=== PATIENT | female | born 1970 | race Caucasian/White ===

== ENCOUNTER 2018-08-25 13:45 | Inpatient (IN) | payer BC, OTHER ==
--- NOTE | 2018-08-25 14:31 | HP ---
SUPERVISING PHYSICIAN: Mohit Rahman MD CHIEF COMPLAINT: Dysuria. HISTORY OF PRESENT ILLNESS: This is a 48-year-old female who went to the clinic today with dysuria. The patient is immunocompromised due to the fact that she has rheumatoid arthritis and is on Remicade. She noted that she has had dysuria with right sided back pain for several days. When she was seen over there, she was in quite a bit of pain and did not look well. Due to her immunocompromised state, she was referred for admission over here for treatment of pyelonephritis. At the time of examination, the patient is in distress secondary to pain. She has significant right CVA tenderness. She is currently not running a fever. PAST MEDICAL HISTORY: 1. Supraventricular tachycardia. 2. Rheumatoid arthritis. 3. Depression. 4. Cervical spondylosis. 5. Migraine headaches. PAST SURGICAL HISTORY: 1. Appendectomy. 2. x5. 3. Hysterectomy. 4. Gastric bypass surgery. 5. Cardiac ablation. CURRENT MEDICATIONS: 1. Vasculera 630 mg by mouth daily. 2. Diclofenac 35 mg b.i.d. 3. Pristiq 100 mg daily. 4. Iron infusion once a week. 5. Zak 5 mg b.i.d. 6. Rheumate 1 mg/1 mg/500 mg 1 capsule b.i.d. 7. Wellbutrin 300 mg extended release b.i.d. 8. Remicade 100 [address] prescribed [address] Carmona in [place]. ALLERGIES: NITROFURANTOIN AND MYCINS. FAMILY HISTORY: Mother has palpitations. 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 She is . No alcohol, no illicit drugs, no smoking. REVIEW OF SYSTEMS: CONSTITUTIONAL: Possible fever, but this subjective. No actual values. Positive for malaise. HEENT: Symptoms are negative. RESPIRATORY: No cough, hemoptysis or pleuritic chest pain. CARDIOVASCULAR: No chest pain, palpitations or peripheral edema. GASTROINTESTINAL: Positive for nausea. No vomiting. No significant abdominal pain. She does have right flank pain. GENITOURINARY: Positive for dysuria, frequency and right flank pain. HEMATOLOGIC: No easy bruising and no transfusion reaction. MUSCULOSKELETAL: Positive for pain consistent with rheumatoid arthritis. No actual joint swelling or muscle cramps at this time. ENDOCRINE: No polydipsia, polyuria or polyphagia. No heat or cold intolerance. NEUROLOGIC: No syncope, paresthesias or seizures. PHYSICAL EXAMINATION: VITAL SIGNS: GENERAL: Ms. Javier is a 48-year-old female in active distress currently secondary to discomfort. HEENT: Normocephalic, atraumatic. Pupils are equal and reactive. No nasal drainage. Throat with moist mucosa. NECK: Supple. Midline trachea. No jugular venous distention. CHEST: Symmetrical with equal rise and fall of the chest with inspiration and expiration. Lung sounds are clear to auscultation bilaterally. CARDIOVASCULAR: Regular rate and rhythm. Normal S1, S2. ABDOMEN: Soft. Positive bowel sounds. GENITOURINARY: Deferred, but she does have significant right CVA tenderness to palpation. EXTREMITIES: Lower extremities with 2+ pulse. Capillary refill is less than 2 seconds. NEUROLOGIC: The patient is alert and oriented. LABORATORY: Labs done at the clinic show sodium 143, potassium 4.4, chloride 110, CO2 26, glucose 98, BUN 22, creatinine 0.7, calcium 8.7, albumin 4.2. White cell count 4.5, hemoglobin 13.8, hematocrit 40.8, platelet count 235. There is no left shift. Urinalysis done shows hazy, yellow urine with specific greater than 1.030, trace blood, pH 6.5, negative nitrites, but trace leukocytes, 10 to 20 WBCs and 4+ bacteria on microscopic. ASSESSMENT: 1. Right sided pyelonephritis. 2. Immunocompromised state secondary to immunosuppressive medications for her rheumatoid arthritis. 3. Rheumatoid arthritis. PLAN: We will admit the patient and give of a bolus of Lactated Ringers followed by continuous IV fluids. We will place on [place] due to the fact that we do not know what bacteria we are dealing with and she is in an immunocompromised state. We will deescalate if possible once we have the sensitivities back. DVT and GI ulcer prophylaxis have been ordered. Pain medications have been ordered as well. [facility][id number] [facility]
[2018-08-25] MEDS ORDERED: LACTATED RINGERS 1,000 ML IVS ONE (14:35)
[2018-08-25] MEDS ORDERED: TEMAZEPAM 15 MG CAP PO PRN (14:36)
[2018-08-25] MEDS ORDERED: fentaNYL CITRATE INJ 50 MCG/ML AMP IV ONE (14:36)
[2018-08-25] MEDS ORDERED: ONDANSETRON INJ 4 MG/2 ML VIAL IV PRN (14:36)
[2018-08-25] MEDS ORDERED: SODIUM CHLORIDE 0.9% (FLUSH) 10 ML SYG IV PRN (14:36)
[2018-08-25] MEDS ORDERED: IV SET AND CAP CHANGE INJ INJ SCH (15:00)
--- NOTE | 2018-08-25 15:26 | CT ---
EXAM DESCRIPTION: Abdoment/Pelvis w/o Contrast CLINICAL HISTORY: 48 years Female, pyelonephritis, rule out hydronephrosis/stone COMPARISON: None available. TECHNIQUE: Contiguous 3 mm axial images were obtained from the lung bases to the level of the proximal femora without the administration of intravenous or oral contrast. Sagittal and coronal reconstructions were reviewed. FINDINGS: Limited evaluation of the solid organs due to the lack of intravenous contrast. THORAX: The imaged lower thorax demonstrates no gross abnormality. LIVER: The liver demonstrates normal size and density with no intrahepatic biliary ductal dilatation. GALLBLADDER: Surgically absent. PANCREAS: Appears normal with no cystic or solid lesions. SPLEEN: Normal ADRENAL GLANDS: Normal with no nodules or masses. KIDNEYS: Both kidneys are symmetric in size and contour with no hydronephrosis or nephrolithiasis or perinephric fluid collections. The visualized ureters appear grossly unremarkable. STOMACH: Changes of gastric bypass surgery are identified. SMALL BOWEL: The small bowel loops demonstrate variable degrees of distention with no abnormal dilatation or other signs to suggest bowel obstruction. LARGE BOWEL: Moderate degree of fecal material is noted throughout the colon, consistent with constipation. No evidence of free intraperitoneal air or fluid. RETROPERITONEUM: The abdominal aorta is nonaneurysmal with no significant atherosclerosis. The inferior vena cava is normal in size and caliber. No abnormally enlarged retroperitoneal lymph nodes are identified. URINARY BLADDER:The urinary bladder is well-distended with no gross abnormality. The uterus is surgically absent. Bilateral ovaries appear normal. Small amount of free fluid is noted in the pelvis. ADDITIONAL FINDINGS: None. BONES: Mild degenerative changes are identified in the visualized bones.No evidence of osteophytic or osteoblastic lesions. IMPRESSION: No evidence of bilateral renal/ureteric/bladder calculi. Constipation. This exam was performed according to our departmental dose-optimization program, which includes automated exposure control, adjustment of the mA and/or kV according to patient size and/or use of iterative reconstruction technique. Electronically signed by: Ann Jansen MD 08/25/2018 3:24 PM [employer]
[2018-08-25] MEDS ORDERED: MAGNESIUM HYDROXIDE 30 ML UD PO PRN (15:59)
[2018-08-25] MEDS ORDERED: BISACODYL SUPPOSITORY 10 MG PR ONE (15:59)
[2018-08-25] MEDS ORDERED: ENOXAPARIN SODIUM 40 MG/0.4 ML SYG SUBCU ONE (16:33)
[2018-08-25] MEDS ORDERED: MEROPENEM 1 GM VIAL IVPB ONE ×2 (16:34→22:22)
[2018-08-25] MEDS ORDERED: SODIUM CHLORIDE 0.9% 50ML 50 ML ONE (16:34)
[2018-08-25] MEDS: ENOXAPARIN SODIUM 40 MG/0.4 ML SYG SUBCU SCH (16:38)
[2018-08-25] MEDS: DEX 5% W/NACL 0.45% 1000ML 1,000 ML IVS PRN (16:42)
[2018-08-25] MEDS: MEROPENEM 1 GM in SODIUM CHL 0.9% 50ML MIN-BAG+ 50 ML IVPB SCH ×2 (16:46→22:26)
[2018-08-25] MEDS: fentaNYL CITRATE INJ 50 MCG/ML AMP IV PRN (19:36)
[2018-08-25] MEDS ORDERED: SODIUM CHL 0.9% 50ML MIN-BAG+ 50 ML IVPB ONE (22:22)
[2018-08-26] MEDS: DEX 5% W/NACL 0.45% 1000ML 1,000 ML IVS PRN ×3 (00:10→16:47)
[2018-08-26] MEDS: fentaNYL CITRATE INJ 50 MCG/ML AMP IV PRN ×5 (03:25→22:45)
[2018-08-26] MEDS: OMEPRAZOLE CAP 20 MG CAP PO SCH (05:27)
[2018-08-26] MEDS ORDERED: SODIUM CHL 0.9% 50ML MIN-BAG+ 50 ML IVPB ONE ×3 (07:28→19:45)
[2018-08-26] MEDS ORDERED: MEROPENEM 1 GM VIAL IVPB ONE ×3 (07:29→19:46)
[2018-08-26] MEDS: MEROPENEM 1 GM in SODIUM CHL 0.9% 50ML MIN-BAG+ 50 ML IVPB SCH ×3 (07:30→22:33)
[2018-08-26] MEDS: BUPROPION HCL 200 MG PO SCH (12:21)
[2018-08-26] MEDS: [UNRECOGNIZED DRUG - OTHER] PO SCH (12:22)
[2018-08-26] MEDS: NON-FORMULARY MEDICATION 1 EA MIS (Diclofenac Potassium [Diclofenac Potassium] 50 MG) PO SCH ×2 (12:22→21:00)
[2018-08-26] MEDS: [UNRECOGNIZED DRUG - OTHER] PO SCH (12:22)
[2018-08-26] MEDS: FAMCICLOVIR 500 MG PO SCH ×2 (12:22→21:00)
--- NOTE | 2018-08-26 13:57 | PN ---
DATE: 08/26/18 SUPERVISING PHYSICIAN: Mohit Rahman M.D. SUBJECTIVE: The patient still complains of pain. Yesterday we did the CAT scan and there was no indication of pyelonephritis, however it did show significant stool. She states she has had 2 bowel movements and has not had problems with her bowel movements, however the CT does indicate that she is quite impacted. I discussed this with her and that we would need to provide some Milk of Magnesia that she actually refused yesterday. She agreed to take it today. OBJECTIVE: Blood pressure 138/83, heart rate 78, respiratory rate 18, temperature 97.9, oxygen saturation 97%. GENERAL: Ms. Javier is a 48 year-old female in no active distress at this time. NEUROLOGIC: The patient is alert and oriented. LUNGS: Clear to auscultation bilaterally. CARDIOVASCULAR: Regular rate and rhythm. Normal S1 and S2. ABDOMEN: Soft, positive bowel sounds. Still has the pain and the right CVA but states that the pain is deep, it is not superficial. GENITOURINARY: Exam is deferred. EXTREMITIES: Lower extremities with no edema. LABORATORY: White count 3.2, hemoglobin 13.3, hematocrit 40.3, platelet count 182. Sodium 138, potassium 4.0, chloride 110, CO2 23, BUN 14, creatinine 049, glucose 91, calcium 8.2. ASSESSMENT: 1. Urinary tract infection. 2. Right flank pain appears to be secondary to constipation as the CT scan is not indicative of pyelonephritis. 3. Rheumatoid arthritis on immunosuppressant medications. PLAN: Will continue the current antibiotics and fluids for now. As stated above I am going to give her some Milk of Magnesia and try to clear her out a little bit to see if the pain improves. She did not want to be as aggressive with mag citrate at this time. Will continue monitor and hopefully can discharge tomorrow if her pain improves. [id number]
[2018-08-26] MEDS: ENOXAPARIN SODIUM 40 MG/0.4 ML SYG SUBCU SCH (15:09)
[2018-08-27] MEDS: DEX 5% W/NACL 0.45% 1000ML 1,000 ML IVS PRN ×3 (01:39→20:24)
[2018-08-27] MEDS ORDERED: SODIUM CHL 0.9% 50ML MIN-BAG+ 50 ML IVPB ONE ×2 (05:50→15:41)
[2018-08-27] MEDS ORDERED: MEROPENEM 1 GM VIAL IVPB ONE ×2 (05:50→15:42)
[2018-08-27] MEDS: OMEPRAZOLE CAP 20 MG CAP PO SCH (06:36)
[2018-08-27] MEDS: MEROPENEM 1 GM in SODIUM CHL 0.9% 50ML MIN-BAG+ 50 ML IVPB SCH ×2 (06:36→16:18)
[2018-08-27] MEDS: [UNRECOGNIZED DRUG - OTHER] PO SCH (09:00)
[2018-08-27] MEDS: [UNRECOGNIZED DRUG - OTHER] PO SCH (09:00)
[2018-08-27] MEDS ORDERED: KETOROLAC TROMETHAMINE INJ 30 MG/ML VIAL IV ONE (10:23)
[2018-08-27] MEDS ORDERED: CYCLOBENZAPRINE HCL 10 MG TAB PO ONE (10:34)
[2018-08-27] MEDS: NON-FORMULARY MEDICATION 1 EA MIS (Diclofenac Potassium [Diclofenac Potassium] 50 MG) PO SCH ×2 (15:30→20:26)
[2018-08-27] MEDS: FAMCICLOVIR PO SCH ×2 (15:33→20:26)
[2018-08-27] MEDS: BUPROPION HCL 200 MG PO SCH ×3 (15:34→20:27)
--- NOTE | 2018-08-27 15:48 | US ---
EXAM DESCRIPTION: Renal: Ultrasound. CLINICAL HISTORY: 48 years Female right flank pain , possible pyelo COMPARISON: Bilateral renal arterial Doppler evaluation on the same visit. TECHNIQUE: Transcutaneous scanning: Two-dimensional and Doppler modes. FINDINGS: Right kidney measures 9.9 x 5.2 x 4.6 cm. cm; mid-renal cortical thickness Normal .Normal echogenicity. No hydronephrosis No echogenic stones. Smooth contour of the kidney with no perinephric fluid. Normal vascularity. Proximal ureter not visualized. Left kidney measures 10.6 x 5.0 x 5.0 cm; mid-renal cortical thickness normal. Normal echogenicity. No hydronephrosis. No echogenic stones. Smooth contour of the kidney with no perinephric fluid. Normal vascularity.. Proximal ureter not visualized. Urinary bladder was visualized. Volume was not measured Abdominal aorta diameter not measured. IMPRESSION: Bilateral kidneys are unremarkable on ultrasound. No perirenal fluid or soft tissue mass. Electronically signed by: Michael Biggs MD 08/27/2018 3:47 PM [employer]
[2018-08-27] MEDS: ENOXAPARIN SODIUM 40 MG/0.4 ML SYG SUBCU SCH (15:50)
[2018-08-27] MEDS: KETOROLAC TROMETHAMINE INJ 30 MG/ML VIAL IV SCH ×2 (15:51→21:46)
--- NOTE | 2018-08-27 16:17 | MRI ---
EXAM DESCRIPTION: Lumbar Spine w/wo Contrast: Magnetic Resonance Imaging. CLINICAL HISTORY: severe back pain/ possible discitis ? Normal ESR and CRP. Normal white count. COMPARISON: None Available. TECHNIQUE: Multiplanar, MRI, multiple standard sequences, without and with 20 mL Gadolinium IV contrast, lumbar spine. No adverse reactions. FINDINGS: Marrow edema in the right lateral L1 lamina also involving the posterior pedicle and the right L1 transverse process with enhancement and edema in the adjacent soft tissues as well as enhancement. Normal marrow signal in the left lamina transverse process and pedicle of L1 as well as the posterior spinous process and the vertebral body. Conus terminates at L1 to with normal contrast enhancement and no extradural mass or abnormal enhancement. Normal signal in the T12-L1 disc, L1-2 disc, and L2-3 disc. No disc bulging with disc space maintained. Normal contrast enhancement. Canal and foramina are patent at these levels. Posterior elements are unremarkable. L3-4: Minimal disc desiccation with tiny posterior midline bulge. Disc space maintained. Minimal flavum ligament hypertrophy. Normal facets. Canal narrowing. Bilateral foramina are patent. Normal contrast enhancement. L4-5: Normal signal in the disc with disc space preserved. No bulging. Minimal hypertrophy of the flavum ligaments with mild canal narrowing. Minimal bilateral facet arthrosis. Bilateral foramina are patent. Normal contrast enhancement in the canal and exterior to the canal. L5-S1: Mild to moderate disc space loss. Trace retrolisthesis. Posterior broad-based bulge abutting the thecal sac with minimal canal narrowing. Subarticular recesses unremarkable. Facets are negative. Bilateral disc bulge into the foramina more right than left abutting the exiting right L5 nerve. Mild left foraminal narrowing. Enhancement in the right-sided endplates. Normal enhancement elsewhere in the spine and in the canal. Vertebral bodies are not compressed at any level. Otherwise normal marrow signal in the vertebral bodies and the posterior elements. The remaining osseous structures demonstrate normal Contrast enhancement. Paravertebral soft tissues with no mass..Perivertebral contrast enhancement normal. IMPRESSION: 1. Abnormal marrow edema in the right transverse process at L1 also involving the posterior right pedicle in the anterior lamina with minimal enhancement and edema in the surrounding soft tissues most likely a nondisplaced fracture. No definite bone destruction. No other bony lesions are seen. 2. Moderate spondylosis L5-S1 with bulging disc which appears to be abutting the right L5 nerve in the foramen. Correlate for right L5 radiculopathy. Mild canal narrowing. Endplate enhancement to the right of midline consistent with spondylosis. Smooth endplate margins. 3. Minimal desiccation L3-4 disc and tiny posterior bulge. Mild canal narrowing. No foraminal stenosis. CRITICAL COMMUNICATION: The critical value was discussed directly by phone with DEENA Funes at approximately 1605 hours, on 08/27/2018. k Electronically signed by: Michael Biggs MD 08/27/2018 4:15 PM [facility]
[2018-08-27] MEDS: FAMCICLOVIR 500 MG PO SCH (16:23)
--- NOTE | 2018-08-27 17:11 | RAD ---
EXAM DESCRIPTION: Lumbar Spine 3 Views: CR/DR/x-ray. CLINICAL HISTORY: 48 years Female pain. Possible fracture right L1 transverse process. COMPARISON: MRI scan lumbar spine without and with gadolinium IV contrast on this visit. CT scan abdomen and pelvis 08/25/2018. TECHNIQUE: 2/3 Views lumbar spine. FINDINGS: Lumbar type vertebra: 5.. No displaced fracture or abnormal contour of the right L1 transverse process. Transitional vertebrae: None. Disc spaces: Narrowing L5-S1. Facet joints: Unremarkable. Compression deformities: None. Bone Density: Normal. Alignment: Anatomic. Abdomen: Surgical sutures left upper quadrant. Bowel gas pattern is nonspecific. IMPRESSION: No displaced fracture abnormal contour of the right L1 transverse process. Consider stress fracture or nondisplaced fracture of the right L1 transverse process. Electronically signed by: Michael Biggs MD 08/27/2018 5:10 PM [facility]
[2018-08-27] MEDS ORDERED: HYDROcodone 5MG/APAP 325MG 1 EA TAB PO PRN (18:34)
[2018-08-27] MEDS: CYCLOBENZAPRINE HCL 5 MG TAB PO PRN (18:56)
--- NOTE | 2018-08-28 00:29 | PN ---
DATE: 08/27/18 SUPERVISING PHYSICIAN: Mohit Rahman M.D. SUBJECTIVE: The patient continues to have a great deal of pain in her right flank area with it being on palpation and movement. She has been afebrile. She has not had any nausea or vomiting. OBJECTIVE: VITAL SIGNS: Temperature 98.3, pulse 78, blood pressure 106/73, respirations 16, satting 99% on room air. GENERAL: The patient is resting comfortably but shows to be in obvious pain upon palpation and any movement in bed. CHEST: Lungs are clear to auscultation HEART: Regular rate and rhythm. ABDOMEN: Soft, non-tender. BACK: Right sided CVA tenderness on palpation to the L1-L2, more posterior right has obvious pain on palpation but no pin point tenderness. No reported sensory deficits. EXTREMITIES: Without any clubbing, cyanosis or edema. NEUROLOGIC: She is alert and oriented times three. LABORATORY: White count remains at 3,200, hemoglobin and hematocrit are stable at 13.8 and 42.0 with platelet count 196,000. Differential shows to be without a left shift. Her ESR is 8, C reactive protein is 0.8. Electrolytes show to be within normal limits, potassium 4.3, BUN 8, creatinine 0.48. MICROBIOLOGY: Final urine culture from the clinic showed urogenital normal dragan. No pathological species isolated. RADIOLOGY: Renal ultrasound per radiology interpretation shows bilateral kidneys unremarkable on ultrasound. No perirenal fluid or soft tissue mass. She then had a lumbar spine MRI and per radiology interpretation shows abnormal marrow edema in the right transverse process at L1 also involving the posterior right pedicle in the anterior lamina with minimal enhancement and edema in the surrounding soft tissues most likely nondisplaced fracture. No definite bone destruction. No other bony lesions. There is also note of moderate spondylosis between L5 and S1 with bulging disc which appears to be abutting the right L5 nerve in the foramen with mild canal narrowing. Endplate enhancement to the right of midline consistent with spondylosis. Smooth endplate margins. Also is minimal desiccation of L3-L4 and tiny posterior bulge. Mild canal narrowing. No foraminal stenosis. This was followed-up with a lumbar spine x-ray and per radiology interpretation shows no displaced fracture abnormal contour of the right L1 transverse process. Consider stress fracture or nondisplaced fracture of the right L1 transverse process. ASSESSMENT: 1. Right flank pain secondary to probable stress fracture of L1 transverse process. 2. Right flank pain with urine culture showing normal growth, inflammatory markers being negative and no signs of pyelonephritis with antibiotics stopped. 3. Rheumatoid arthritis on immunosuppressant medications. PLAN: Will stop her antibiotics now as there is no indication of an infectious process. I discussed at length with her her diagnosis and findings on the MRI and the plan. At this point will start her on [place] 5 every 6 hours with scheduled Toradol every 6 hours with anticipation of discharging tomorrow. She did have several bowel movements in the last 24 hours, this along with her feeling constipated. She will need a Physical Therapy evaluation in the morning prior to discharge and further plans for pain control to include muscle relaxants. Until discharge and able to transition to oral medications, will continue to monitor and treat as needed. [facility][id number] [facility]
[2018-08-28] MEDS: KETOROLAC TROMETHAMINE INJ 30 MG/ML VIAL IV SCH (03:20)
[2018-08-28] MEDS: DEX 5% W/NACL 0.45% 1000ML 1,000 ML IVS PRN (03:21)
[2018-08-28] MEDS: OMEPRAZOLE CAP 20 MG CAP PO SCH (06:11)
[2018-08-28] MEDS: CYCLOBENZAPRINE HCL 5 MG TAB PO PRN (07:09)
[2018-08-28] MEDS: NON-FORMULARY MEDICATION 1 EA MIS (Diclofenac Potassium [Diclofenac Potassium] 50 MG) PO SCH (08:39)
[2018-08-28] MEDS: FAMCICLOVIR PO SCH (08:39)
[2018-08-28] MEDS: BUPROPION HCL 200 MG PO SCH (08:40)
[2018-08-28] MEDS: [UNRECOGNIZED DRUG - OTHER] PO SCH (08:41)
[2018-08-28] MEDS: [UNRECOGNIZED DRUG - OTHER] PO SCH (08:42)
[2018-08-28] MEDS ORDERED: NON-FORMULARY MEDICATION 1 EA MIS PO SCH (09:00)
[2018-08-28] MEDS ORDERED: CYCLOBENZAPRINE HCL 5 MG TAB PO PRN (10:28)
[2018-08-28] MEDS ORDERED: ACETAMINOPHEN 500 MG TAB PO SCH (10:30)
[2018-08-28] MEDS ORDERED: MELOXICAM 7.5 MG TAB PO SCH (10:30)
[2018-08-28] MEDS ORDERED: KETOROLAC TROMETHAMINE INJ 30 MG/ML VIAL IM ONE (10:32)
[2018-08-28 10:38] VITALS: BP 103/70; TEMP 98.3; O2SAT 97
--- NOTE | 2018-09-01 08:56 | DS ---
SUPERVISING PHYSICIAN: Mohit Rahman MD ADMISSION DIAGNOSIS: 1. Right sided pyelonephritis. 2. Immunocompromised state secondary to immunosuppressive medications for her rheumatoid arthritis. 3. Rheumatoid arthritis. DISCHARGE DIAGNOSIS: 1. Right flank pain secondary to stress fracture of L1 transverse process, nondisplaced. 2. Right flank pain with pyelonephritis, was negative on urine culture, again associated with inflammation due to L1 fracture of #1 with no signs of pyelonephritis with antibiotics having been stopped prior to discharge.. 3. Rheumatoid arthritis on immunosuppressant medications. REASON FOR HOSPITALIZATION: This is a 48-year-old female who went to the clinic today with dysuria. The patient is immunocompromised due to the fact that she has rheumatoid arthritis and is on Remicade. She noted that she has had dysuria with right sided back pain for several days. When she was seen over there, she was in quite a bit of pain and did not look well. Due to her immunocompromised state, she was referred for admission over here for treatment of pyelonephritis. At the time of examination, the patient is in distress secondary to pain. She has significant right CVA tenderness. She is currently not running a fever. LABORATORY: White count both on admission and discharge was 3,200, hemoglobin stable at discharge at 13.8, hematocrit 42.0, platelet count 196,000, differential without a left shift. Sed rate was normal at 8. Electrolytes normal on admission and prior to discharge with BUN of 8, creatinine 0.48, C- reactive protein at 0.8. Urinalysis showed to be was within normal limits. MICROBIOLOGY: Urine cultures from the clinic showed urogenital normal dragan, no pathological specimens identified. RADIOLOGY: Initially on admission showed abdominal pelvic CT per radiology interpretation with no evidence of bilateral renal or uteric bladder calculi as well as constipation was noted. She then had a renal ultrasound on 08/27 per radiology interpretation showed bilateral kidneys unremarkable ultrasound, no perirenal fluid or soft tissue mass. This was followed up with a lumbar spine MRI and per radiology interpretation there was abnormal marrow edema in the right transverse process involving the posterior right pedicle and anterior lamina with minimal enhancement and edema in the surrounding tissues most likely nondisplaced fracture and no definite bone destruction or other bony lesions are seen. Also noted was moderate spondylosis of L5 and S1 involving disks which appears to be abutting the L5 nerve and the foramen with mild canal narrowing. Endplate enhancement to the right of middle consistent with spondylosis. Smooth endplate and margins. Last noted was a minimal desiccation L3 to 4 disk with tiny posterior bulge, mild canal narrowing, no foraminal stenosis. Please see that full report for details. This was followed up with a plain x-ray of the lumbar spine and per radiology interpretation, no displaced fracture, abnormal contour to the right L1 transverse process. Consider a stress fracture, a nondisplaced fracture to the right L1 transverse process. HOSPITAL COURSE: The patient was admitted initially on 08/25/18 with concerns for right-sided pyelonephritis. Her pain initially occurred 10 days prior to admission and she was started on treatments for urinary tract infection and the pain worsened to the point where she was admitted on 08/25/18. She was started on antibiotic coverage initially with meropenem. Her pain the second day after admission had worsened, she was not showing any fever and it appeared more that the pain was present on palpation of the CVA area and over the L1 lumbar region. Therefore, the exams as noted above were completed indicating a probable L1 transverse nondisplaced fracture or stress fracture. Her urine was again repeated and showed to be within normal limits. She was without a fever, therefore, bone fracture was ruled out and she was started on treatment for the back pain related to the L1 fracture and stopped on the antibiotics. She was given pain control initially with morphine and had good results and was transitioned to p.o. medication with [place] and Flexeril. On the morning of discharge her pain had been well-controlled and she was considered stable enough to discharge home with further outpatient management. Prior to discharge she was set up for a lumbar back brace which was ordered and will be received in Dr. Rahman office. 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 She was discharged to followup with Dr. Rahman. PLAN: Ms. Javier was discharged on 08/28/18 with instructions to followup with Dr. Rahman on 09/03/18. A brace had been ordered for her lumbar spine which will be received in Dr. Rahman office. She was instructed to take her medications as directed and told to return to the hospital should she have any worsening symptoms. DIET:AT DISCHARGE: Usual diet. ACTIVITIES: Increase as tolerated with no strenuous lifting, exercising, but walking as tolerated. NEW MEDICATIONS AT DISCHARGE: 1. Tylenol 500 mg 3 times a day, #90. 2. Flexeril 5 mg at bedtime as needed, #30, no refills. DISPOSITION: The patient was discharged to the care of her . CONDITION ON DISCHARGE: Stable and improving. [facility][id number] [facility]
== END 2018-08-28 11:50 | disposition home or self-care (01) | DRG 690 ==
LOC: MS 13:45
PROVIDERS: ADMIT Family Medicine; ATTEND Nurse Practitioner
DX: N12 Tubulo-interstitial nephritis, not specified as acute or chronic (principal); K59.00 Constipation, unspecified; M06.9 Rheumatoid arthritis, unspecified; F32.9 Major depressive disorder, single episode, unspecified; M47.9 Spondylosis, unspecified; M48.46XA Fatigue fracture of vertebra, lumbar region, initial encounter for fracture; Z98.84 Bariatric surgery status; Z88.1 Allergy status to other antibiotic agents

== ENCOUNTER → 2019-07-16 | Outpatient (CLI) | payer BC ==
--- NOTE | 2019-07-17 13:51 | US ---
EXAM DESCRIPTION: Venous,Lower Extremity LT (accession [id number]), Venous,Lower Extremity RT (accession [id number]): Ultrasound. CLINICAL HISTORY: LOCALIZED [place] COMPARISON: None Available. TECHNIQUE: Two -dimensional and doppler sonographic evaluation of the deep venous system of the bilateral lower extremities. FINDINGS: Doppler evaluation shows normal color flow and normal phasicity and augmentation of the bilateral common femoral veins, junctions with the bilateral proximal saphenous veins, deep femoral veins, femoral veins, popliteal veins, greater saphenous vein, peroneal and posterior tibial veins. These veins showed normal occlusion with transducer pressure. Two-dimensional survey showed no echogenic clot within these veins. IMPRESSION: Duplex ultrasound evaluation of the bilateral lower extremity deep venous systems showing no evidence of thrombosis. Electronically signed by: Michael Biggs MD 07/17/2019 1:50 PM [employer]
--- NOTE | 2019-07-17 13:52 | US ---
EXAM DESCRIPTION: Venous,Lower Extremity LT (accession [id number]), Venous,Lower Extremity RT (accession [id number]): Ultrasound. CLINICAL HISTORY: LOCALIZED EDEMA COMPARISON: None Available. TECHNIQUE: Two -dimensional and doppler sonographic evaluation of the deep venous system of the bilateral lower extremities. FINDINGS: Doppler evaluation shows normal color flow and normal phasicity and augmentation of the bilateral common femoral veins, junctions with the bilateral proximal saphenous veins, deep femoral veins, femoral veins, popliteal veins, greater saphenous vein, peroneal and posterior tibial veins. These veins showed normal occlusion with transducer pressure. Two-dimensional survey showed no echogenic clot within these veins. IMPRESSION: Duplex ultrasound evaluation of the bilateral lower extremity deep venous systems showing no evidence of thrombosis. Electronically signed by: Michael Biggs MD 07/17/2019 1:50 PM SOFTWARE TEAM LEADER
== END ==
LOC: US 16:29
PROVIDERS: ATTEND Family Medicine
DX: R60.0 Localized edema (principal)

== ENCOUNTER → 2019-08-24 | Outpatient (CLI) | payer BC ==
--- NOTE | 2019-08-24 17:58 | CT ---
EXAM DESCRIPTION: Head CT without contrast CLINICAL HISTORY: HEADACHE COMPARISON: None available TECHNIQUE: Noncontrast head CT was performed with routine protocol. FINDINGS: Normal obrien-white matter differentiation. Ventricles and sulci are normal for age. No high density hemorrhage, focal edema or shift of the midline. No sulcal effacement. Normal orbital contents. Basilar cisterns appear clear. Intact calvarium with no fracture or lytic lesion. Normal aeration of tympanic cavities and mastoid air cells. No fluid levels in the paranasal sinuses. Skull base appears intact. Symmetrical internal auditory canals. IMPRESSION: No acute intracranial pathologic process. This exam was performed according to our departmental dose-optimization program, which includes automated exposure control, adjustment of the mA and/or kV according to patient size and/or use of iterative reconstruction technique. Total DLP equals 859.97 mGycm. Electronically signed by: Dejon Becker MD 08/24/2019 5:57 PM GROUND INSTRUCTOR BASIC
== END ==
LOC: CT 16:44
PROVIDERS: ATTEND Nurse Practitioner Acute Care
DX: R51 Headache (principal)

== ENCOUNTER → 2020-02-16 | Outpatient (CLI) | payer BC ==
--- NOTE | 2020-02-16 14:33 | MAM ---
EXAM DESCRIPTION: 3D Screening BILATERAL : Digital Mammography. CLINICAL HISTORY: 49 years Female SCREEN . No complaints. No personal or family history of breast cancer. Menarche age 11. Childbirth age 19. Menopause age 39. No HRT. Lifetime risk of developing breast cancer (Tyrer-Cuzick model)(%): 8.0. COMPARISON: Baseline study at this facility.. No prior reports available. TECHNIQUE: Bilateral CC and MLO projection full-field images, digital tomosynthesis mammographic technique. Bilateral digital 2-D full-field MLO images. CAD available for 2-D images. FINDINGS: The breast parenchymal density pattern is: Scattered areas of fibroglandular density. No skin thickening or nipple retraction. Focal asymmetry in the middle third of the upper-outer quadrant of the left breast at the 1:30 clock position approximately 6 cm from the nipple. Not associated with microcalcifications. No new focal, stellate mass or density, focal asymmetry , and no suspicious microcalcifications right breast. IMPRESSION: BI-RADS CATEGORY: 0 - INCOMPLETE- Need additional imaging evaluation. RECOMMENDATIONS: FOLLOW-UP: Recall for additional imagin-D and tomosynthesis left breast in the LM projection with directed left breast ultrasound.. Written communication concerning the IMPRESSION and Follow-up, will be mailed to the patient and referring health care provider. Electronically signed by: Michael Biggs MD 02/16/2020 2:32 PM CDT
== END ==
LOC: MAMMO 08:00
PROVIDERS: ATTEND Family Medicine
DX: Z12.31 Encounter for screening mammogram for malignant neoplasm of breast (principal)

== ENCOUNTER → 2020-02-22 | Outpatient (CLI) | payer BC ==
--- NOTE | 2020-02-23 09:47 | RAD ---
EXAMS DESCRIPTION: Hip x-ray two views right Hip x-ray two views left CLINICAL HISTORY: 50 years, Female, HIP PAIN COMPARISON: None TECHNIQUE: AP and frog leg lateral views of the bilateral hips FINDINGS: Right hip No fracture. No dislocation. Normal bony mineralization of the right femur and right hemipelvis. Sclerotic changes at the right SI joint and right pubic symphysis. Left hip No fracture or dislocation. Normal bony mineralization of the left proximal femur and left hemipelvis. Degenerative sclerosis of the left SI joint and pubic symphysis. IMPRESSION: Negative for fracture or dislocation. Electronically signed by: Dejon Becker MD 02/23/2020 9:46 AM CDT
--- NOTE | 2020-02-23 16:30 | US ---
EXAM DESCRIPTION: 3D Diagnostic, Left (accession [id number]), Breast,Left (accession [id number]): Ultrasound CLINICAL HISTORY: 50 yearsFemaleABNORMAL MAMMO focal asymmetry left breast on screening examination. Lifetime risk of developing breast cancer (Tyrer-Cuzick model)(%): 8.0. COMPARISON: Bilateral screening digital breast tomosynthesis February 15. TECHNIQUE: Left breast LM projection full-field images, digital tomosynthesis technique. Bilateral 2-D digital full-field images: LM projection. CAD available for 2-D images.. Transcutaneous scanning of the left breast utilizing obrien-scale and Doppler modes. Scanning performed by the wide piece goods inspector ; observation by Dr. Biggs. FINDINGS: The breast parenchymal density pattern is: Scattered areas of fibroglandular density. No skin thickening or nipple retraction dense fibroglandular tissues in the region of interest upper outer quadrant middle third left breast but no definite mass. Similar appearance to prior MLO image. No new focal, stellate mass or density, focal asymmetry , and no suspicious microcalcifications left breast. Ultrasound: Scanning upper-outer quadrant left breast. Mixture of fatty tissues and less prominent fibroglandular tissues. Small focal areas of fibroglandular tissue. Specifically scanning at 7 cm from the nipple at 2:00. 3.6 mm structure with eccentric echogenicity and cortical decreased echoes that a circumscribed suggestive of lymph node. This lymph node is vascular. No abnormal shadowing. No dominant solid mass, no distinct cyst, no fluid collection, and no large calcifications. IMPRESSION: Benign exam. Small lymph node. BIRAD CATEGORY: 2 BENIGN FINDINGS. RECOMMENDATIONS: FOLLOW UP: Routine digital bilateral mammographic screening, one year interval from February 2020. Written communication explaining the IMPRESSION and follow-up, will be mailed to the patient and referring health care provider. The FINDINGS and the FOLLOW-UP plan were reviewed in person with the patient after the examination. According to the [employer], yearly mammograms are recommended starting at age 40 and continuing as long as a woman is in good health. Any breast change noted on a breast self-exam should be reported promptly to the patient's healthcare provider. Breast MRI is recommended for women with an approximately 20-25% or greater lifetime risk of breast cancer, including women with a strong family history of breast or ovarian cancer and women who have been treated for Hodgkin's disease. A negative mammographic report should not delay tissue diagnosis in patients with significant clinical history or physical findings. Extremely dense breast tissue limits the sensitivity of digital mammography. Electronically signed by: Michael Biggs MD 02/23/2020 4:29 PM CDT
== END ==
LOC: LAB.O 15:58
PROVIDERS: ATTEND Orthopaedic Surgery Sports Medicine
DX: M06.89 Other specified rheumatoid arthritis, multiple sites (principal); M25.551 Pain in right hip; M25.552 Pain in left hip; R92.8 Other abnormal and inconclusive findings on diagnostic imaging of breast; Z79.899 Other long term (current) drug therapy
CPT/HCPCS: 36415; 73521; 76641; 77065; 80053; 85025; 85651; G0279

== ENCOUNTER 2020-03-16 16:02 | Emergency (ER) | payer BC, OTHER ==
--- NOTE | 2020-03-16 17:01 | ED.PDOC ---
History of Present Illness - General Chief Complaint: Headache Stated Complaint: passed out Time Seen by Provider: 03/16/20 16:22 Source: patient - History of Present Illness Initial Comments: 50 yo F who presents for AMS. EMS voice that patient was found unresponsive outside of her garbage truck today by a bystander. 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 She reports a severe headache to the top of her head, pressure in nature, constant, no radiation, associated vertigo and feeling tingling all overall, generalized weakness. Denies recent illness. Is unsure what happened today. Denies pain or injury elsewhere. Denies drug abuse. Denies f/c, cough, congestion, visual changes, focal weakness, numbness, CP, SOB, abd pain, back pain, n/v/d, edema. Allergies/Adverse Reactions: Allergies NO KNOWN ALLERGY Allergy (Verified 11/09/12 11:16) Home Medications: Ambulatory Orders RX: Bupropion HCl [Bupropion Hydrochloride E] 200 mg PO DAILY 08/25/18 RX: Diclofenac Potassium 50 mg PO BID 08/25/18 RX: Dietary Management Product [Rheumate] 1 cap PO DAILY 08/25/18 RX: Dietary Management Product [Vasculera] 2 tab PO DAILY 08/25/18 RX: Famciclovir 500 mg PO BID 08/25/18 Acetaminophen [Tylenol] 500 mg PO TID #90 tab 08/28/18 RX: Cyclobenzaprine HCl [Flexeril] 5 mg PO BEDTIME PRN #30 tab 08/28/18 Review of Systems - Review of Systems Constitutional: States: other - AMS. Denies: chills, fever EENTM: States: other - +vertigo. Denies: eye pain, double vision Respiratory: Denies: cough, short of breath Cardiology: Denies: chest pain, palpitations Gastrointestinal/Abdominal: Denies: abdominal pain, diarrhea, nausea, vomiting Genitourinary: Denies: dysuria, frequency, hematuria Musculoskeletal: Denies: back pain, neck pain Skin: Denies: lesions, rash Neurological: States: headache, tingling, weakness - generalized. Denies: numbness Past Medical History (General) - Patient Medical History Hx Seizures: No Hx Stroke: No Hx Asthma: No Hx of COPD: No Hx Congestive Heart Failure: No Hx Pacemaker: No Hx Hypertension: No Hx Diabetes: No Hx MRSA: No - Social History Hx Alcohol Use: No Hx Substance Use: No Hx Physical Abuse: No Hx Emotional Abuse: No - Triage Comment ED Triage Comment: pt poor historian. unable to answer majority of questions. Family Medical History - Family History Father Family History: No Known Living Status: Still Living Hx Family Asthma: No Hx Family Congestive Heart Failure: No Hx Family Hypertension: No Hx Family Stroke: No Hx Cardiac Disease: No Hx Family Diabetes: No Hx Family Cancer: No Mother Family History: No Known Living Status: Still Living Hx Family Asthma: No Hx Family Congestive Heart Failure: No Hx Family Hypertension: No Hx Family Stroke: No Hx Cardiac Disease: No Hx Family Diabetes: No Hx Family Cancer: No Physical Exam - Physical Exam General Appearance: Alert, Well Developed, Well Nourished, Other - [place] Exam: bilateral other - PERRL, EOMI, +photophobia Ears, Nose, Throat: normal ENT inspection Neck: non-tender, full range of motion, supple, normal inspection Respiratory: chest non-tender, lungs clear, normal breath sounds, no respiratory distress, no accessory muscle use Cardiovascular/Chest: normal peripheral pulses, regular rate, rhythm, no edema, no gallop, no JVD, no murmur Peripheral Pulses: radial,right: 2+, radial,left: 2+ Gastrointestinal/Abdominal: non tender, soft, no organomegaly, no pulsatile mass Back Exam: normal inspection, no CVA tenderness, no vertebral tenderness Extremity: normal range of motion, non-tender, normal inspection Neurologic: other - 4/5 strength to all extremities, no focal deficit, sleepy but answers all questions appropriately. No sensory deficit. Skin Exam: normal color, warm/dry Progress - Progress Progress: 03/16/20 20:16 Pt states she is feeling better, MCKENNA now 5/10, no longer with vertigo. Declines LP or transfer for MRI. Discussed at length the risks and benefits, she would like to just go home. Amendable to another round of pain medication. 5/5 strength, sensation intact, EOMI, PERRL, Cerebellar testing wnl, GCS 15, alert and oriented, still however does not remember what happened today. 03/16/20 20:28 At this time the patient requested to leave against medical advice. I explained that while they retain the right to leave whenever they choose, I strongly recommend against it. In addition, I explained that they may subject themselves to potentially worsening their condition; progression that may include additional pain, disability, and even could not be excluded. At this time, the patient still requested to leave and subsequently left the department against medical advice. Fay Jackson MD Emergency Medicine Physician Billing Number [id number] - Results/Orders Results/Orders: 03/16/20 16:40 EKG .ONCE Laboratory Results - last 24 hr 03/16/20 03/16/20 03/16/20 16:25 16:25 16:25 WBC 8.0 RBC 4.48 Hgb 13.3 Hct 39.4 MCV 88.0 MCH 29.8 MCHC 33.8 RDW 14.5 Plt Count 264 MPV 8.5 Absolute Neuts (auto) 4.00 Absolute Lymphs (auto) 3.10 Absolute Monos (auto) 0.80 Absolute Eos (auto) 0.20 Absolute Basos (auto) 0.00 Neutrophils % 49.6 Lymphocytes % 38.3 Monocytes % 9.6 H Eosinophils % 1.9 Basophils % 0.6 PT 9.5 INR < 1.00 PTT (SP) 24.9 Sodium 138 Potassium 3.7 Chloride 106 Carbon Dioxide 22 Anion Gap 13.7 BUN 15 Creatinine 0.77 BUN/Creatinine Ratio 19.5 Random Glucose 85 Serum Osmolality 275.8 Calcium 8.3 L Total Bilirubin 0.4 AST 22 ALT 19 Alkaline Phosphatase 47 Troponin I Serum Total Protein 7.0 Albumin 4.1 Globulin 2.9 Albumin/Globulin Ratio 1.4 Urine Color Urine Appearance Urine pH Ur Specific [place] Urine Protein Urine Glucose (UA) Urine Ketones Urine Blood Urine Nitrite Urine Bilirubin Urine Urobilinogen Ur Leukocyte Esterase Urine RBC Urine WBC Ur Epithelial Cells Urine Bacteria Urine HCG, Qual Urine Opiates Screen Urine Barbiturates Ur Phencyclidine Scrn U Amphetamin/Meth Scrn U Benzodiazepines Scrn U Cocaine Metab Screen U Cannabinoids Screen 03/16/20 03/16/20 03/16/20 16:25 19:00 19:00 WBC RBC Hgb Hct MCV MCH MCHC RDW Plt Count MPV Absolute Neuts (auto) Absolute Lymphs (auto) Absolute Monos (auto) Absolute Eos (auto) Absolute Basos (auto) Neutrophils % Lymphocytes % Monocytes % Eosinophils % Basophils % PT INR PTT (SP) Sodium Potassium Chloride Carbon Dioxide Anion Gap BUN Creatinine BUN/Creatinine Ratio Random Glucose Serum Osmolality Calcium Total Bilirubin AST ALT Alkaline Phosphatase Troponin I 0.01 Serum Total Protein Albumin Globulin Albumin/Globulin Ratio Urine Color Urine Appearance Urine pH Ur Specific [place] Urine Protein Urine Glucose (UA) Urine Ketones Urine Blood Urine Nitrite Urine Bilirubin Urine Urobilinogen Ur Leukocyte Esterase Urine RBC Urine WBC Ur Epithelial Cells Urine Bacteria Urine HCG, Qual Negative Urine Opiates Screen Negative Urine Barbiturates Negative Ur Phencyclidine Scrn Negative U Amphetamin/Meth Scrn Negative U Benzodiazepines Scrn Negative U Cocaine Metab Screen Negative U Cannabinoids Screen Negative 03/16/20 19:00 WBC RBC Hgb Hct MCV MCH MCHC RDW Plt Count MPV Absolute Neuts (auto) Absolute Lymphs (auto) Absolute Monos (auto) Absolute Eos (auto) Absolute Basos (auto) Neutrophils % Lymphocytes % Monocytes % Eosinophils % Basophils % PT INR PTT (SP) Sodium Potassium Chloride Carbon Dioxide Anion Gap BUN Creatinine BUN/Creatinine Ratio Random Glucose Serum Osmolality Calcium Total Bilirubin AST ALT Alkaline Phosphatase Troponin I Serum Total Protein Albumin Globulin Albumin/Globulin Ratio Urine Color Yellow Urine Appearance Clear Urine pH 7.0 Ur Specific [place] 1.015 Urine Protein Negative Urine Glucose (UA) Negative Urine Ketones Negative Urine Blood Trace-intact H Urine Nitrite Negative Urine Bilirubin Negative Urine Urobilinogen 0.2 Ur Leukocyte Esterase Negative Urine RBC 0-1 Urine WBC 0 Ur Epithelial Cells 0 Urine Bacteria 0 Urine HCG, Qual Urine Opiates Screen Urine Barbiturates Ur Phencyclidine Scrn U Amphetamin/Meth Scrn U Benzodiazepines Scrn U Cocaine Metab Screen U Cannabinoids Screen CXR: EXAM DESCRIPTION: Chest,1 View CLINICAL HISTORY: 50 years Female, AMS COMPARISON: Old chest x-ray June 05, 2011 TECHNIQUE: AP portable chest. FINDINGS: Heart size is large with normal pulmonary vascularity. No consolidating infiltrate. No pulmonary mass or worrisome nodule. No pneumothorax or pleural effusion. Bones are unremarkable. IMPRESSION: Large heart without congestive failure. Electronically signed by: Dejon Becker MD 03/16/2020 5:[address] Head: EXAM DESCRIPTION: CT head without contrast CLINICAL HISTORY: AMS COMPARISON: Previous CT head August 24, 2019 TECHNIQUE: Noncontrast head CT was performed with routine protocol. FINDINGS: Normal obrien-white matter differentiation. Ventricles and sulci are normal for age. Tonsils may be slightly low lying. No high density hemorrhage, focal edema or shift of the midline. No sulcal effacement. Normal orbital contents. Basilar cisterns appear clear. Intact calvarium with no fracture or lytic lesion. Normal aeration of tympanic cavities and mastoid air cells. No fluid levels in the paranasal sinuses. Skull base appears intact. Symmetrical internal auditory canals. Coronal and sagittal images confirm the findings. No change compared to the previous study. IMPRESSION: No acute intracranial pathologic process. This exam was performed according to our departmental dose-optimization program, which includes automated exposure control, adjustment of the mA and/or kV according to patient size and/or use of iterative reconstruction technique. Total DLP equals 967.47 mGycm. Electronically signed by: Dejon Becker MD 03/16/2020 5:25 PM CDT CTA head and neck: PROCEDURE: CTA Head (accession [id number]), CTA Neck (accession [id number]) CLINICAL HISTORY: 50 years Female AMS COMPARISON: 03/05/2012. TECHNIQUE: Contiguous axial images obtained through the head and neck during the infusion of IV contrast. Reformatted images obtained. 3-D MIP reformatted images obtained. NASCET criteria utilized for the evaluation of any stenotic lesions. This exam was performed according to our department optimization program which includes automated exposure control, adjustment of the mA and/or kv according to patient size and/or use of iterative reconstruction technique. FINDINGS: At the time of dictation 1.25 mm axial imaging is available. Request has been made for less than 1 mm slice thickness images. 1.5 cm low-attenuation lesion within the thyroid on the right.. Multicystic area within the isthmus and left lobe. These changes appear similar to the examination from 2012. 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 The common carotid arteries are patent and symmetric without dissection or narrowing. No significant plaquing in either bulb. Cervical segments of the internal carotid arteries are patent and symmetric. No evidence of dissection or narrowing. Motion artifact limits evaluation of the vertebral arteries. Distal vertebral arteries are small in caliber as is the basilar artery. No evidence of vertebral dissection in the neck. The basilar artery and the distal vertebral arteries appear slightly smaller in caliber than they did on the prior examination. There appear to be patent posterior communicating arteries bilaterally. Study is limited by venous contamination. Patent anterior communicating artery. No occlusion in the [place]. No large branch occlusion noted. 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 Electronically signed by: Cindy Arellano MD 03/16/2020 7:27 PM CDT Vital Signs - 24 hr 03/16/20 03/16/20 03/16/20 16:05 17:05 18:00 Temperature 97.1 F L 97.8 F Pulse Rate [ 71 80 brachial] Respiratory 12 12 16 Rate Blood Pressure 134/82 125/89 125/82 [Right Arm] O2 Sat by Pulse 100 98 96 Oximetry 03/16/20 03/16/20 03/16/20 19:00 20:00 20:50 Temperature 97.8 F Pulse Rate [ 67 78 80 brachial] Respiratory 18 16 18 Rate Blood Pressure 130/78 140/85 140/85 [Right Arm] O2 Sat by Pulse 98 95 95 Oximetry - EKG/XRAY/CT EKG: Sinus, no ST T wave changes Departure - Departure Clinical Impression: Syncope and collapse Headache Qualifiers: Headache type: unspecified Headache chronicity pattern: acute headache Intractability: not intractable Qualified Code(s): R51 - Headache Time of Disposition: 20:26 Disposition: Left Against Medical Advice Condition: Fair Departure Forms: ED Discharge - Pt. Copy, Patient Portal Self Enrollment Instructions: DI for Headache, Syncope (Fainting) (DC) Referrals: Mohit Rahman MD [Primary Care Provider] - 1-2 Days Home Medications: Ambulatory Orders RX: Bupropion HCl [Bupropion Hydrochloride E] 200 mg PO DAILY 08/25/18 RX: Diclofenac Potassium 50 mg PO BID 08/25/18 RX: Dietary Management Product [Rheumate] 1 cap PO DAILY 08/25/18 RX: Dietary Management Product [Vasculera] 2 tab PO DAILY 08/25/18 RX: Famciclovir 500 mg PO BID 08/25/18 Acetaminophen [Tylenol] 500 mg PO TID #90 tab 08/28/18 RX: Cyclobenzaprine HCl [Flexeril] 5 mg PO BEDTIME PRN #30 tab 08/28/18 Additional Instructions: Go to, [facility], for symptoms that are new, continue, worsen
--- NOTE | 2020-03-16 17:23 | RAD ---
EXAM DESCRIPTION: Chest,1 View CLINICAL HISTORY: 50 years Female, AMS COMPARISON: Old chest x-ray June 05, 2011 TECHNIQUE: AP portable chest. FINDINGS: Heart size is large with normal pulmonary vascularity. No consolidating infiltrate. No pulmonary mass or worrisome nodule. No pneumothorax or pleural effusion. Bones are unremarkable. IMPRESSION: Large heart without congestive failure. Electronically signed by: Dejon Becker MD 03/16/2020 5:22 PM CDT
--- NOTE | 2020-03-16 17:26 | CT ---
EXAM DESCRIPTION: CT head without contrast CLINICAL HISTORY: AMS COMPARISON: Previous CT head August 24, 2019 TECHNIQUE: Noncontrast head CT was performed with routine protocol. FINDINGS: Normal obrien-white matter differentiation. Ventricles and sulci are normal for age. Tonsils may be slightly low lying. No high density hemorrhage, focal edema or shift of the midline. No sulcal effacement. Normal orbital contents. Basilar cisterns appear clear. Intact calvarium with no fracture or lytic lesion. Normal aeration of tympanic cavities and mastoid air cells. No fluid levels in the paranasal sinuses. Skull base appears intact. Symmetrical internal auditory canals. Coronal and sagittal images confirm the findings. No change compared to the previous study. IMPRESSION: No acute intracranial pathologic process. This exam was performed according to our departmental dose-optimization program, which includes automated exposure control, adjustment of the mA and/or kV according to patient size and/or use of iterative reconstruction technique. Total DLP equals 967.47 mGycm. Electronically signed by: Dejon Becker MD 03/16/2020 5:25 PM CDT
[2020-03-16 17:42] VITALS: TEMP 97.8
[2020-03-16] MEDS ORDERED: SODIUM CHLORIDE 0.9% 1000ML 1,000 ML IVS ONE (17:48)
[2020-03-16] MEDS ORDERED: ACETAMINOPHEN IV 1000MG 1,000 MG in PREMIX BOTTLE 1 BOTTLE IVPB ONE (17:48)
[2020-03-16] MEDS ORDERED: PROCHLORPERAZINE INJ 10 MG/2 ML VIAL IV ONE ×2 (18:36→20:16)
[2020-03-16] MEDS ORDERED: diphenhydrAMINE HCL 50 MG/ML VIAL IV ONE (18:37)
--- NOTE | 2020-03-16 19:28 | CT ---
PROCEDURE: CTA Head (accession [id number]), CTA Neck (accession [id number]) CLINICAL HISTORY: 50 years Female AMS COMPARISON: 03/05/2012. TECHNIQUE: Contiguous axial images obtained through the head and neck during the infusion of IV contrast. Reformatted images obtained. 3-D MIP reformatted images obtained. NASCET criteria utilized for the evaluation of any stenotic lesions. This exam was performed according to our department optimization program which includes automated exposure control, adjustment of the mA and/or kv according to patient size and/or use of iterative reconstruction technique. FINDINGS: At the time of dictation 1.25 mm axial imaging is available. Request has been made for less than 1 mm slice thickness images. 1.5 cm low-attenuation lesion within the thyroid on the right.. Multicystic area within the isthmus and left lobe. These changes appear similar to the examination from 2011. 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 The common carotid arteries are patent and symmetric without dissection or narrowing. No significant plaquing in either bulb. Cervical segments of the internal carotid arteries are patent and symmetric. No evidence of dissection or narrowing. Motion artifact limits evaluation of the vertebral arteries. Distal vertebral arteries are small in caliber as is the basilar artery. No evidence of vertebral dissection in the neck. The basilar artery and the distal vertebral arteries appear slightly smaller in caliber than they did on the prior examination. There appear to be patent posterior communicating arteries bilaterally. Study is limited by venous contamination. Patent anterior communicating artery. No occlusion in the [place]. No large branch occlusion noted. 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
--- NOTE | 2020-03-16 19:28 | CT ---
PROCEDURE: CTA Head (accession [id number]), CTA Neck (accession [id number]) CLINICAL HISTORY: 50 years Female AMS COMPARISON: 03/05/2012. TECHNIQUE: Contiguous axial images obtained through the head and neck during the infusion of IV contrast. Reformatted images obtained. 3-D MIP reformatted images obtained. NASCET criteria utilized for the evaluation of any stenotic lesions. This exam was performed according to our department optimization program which includes automated exposure control, adjustment of the mA and/or kv according to patient size and/or use of iterative reconstruction technique. FINDINGS: At the time of dictation 1.25 mm axial imaging is available. Request has been made for less than 1 mm slice thickness images. 1.5 cm low-attenuation lesion within the thyroid on the right.. Multicystic area within the isthmus and left lobe. These changes appear similar to the examination from 2011. 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 The common carotid arteries are patent and symmetric without dissection or narrowing. No significant plaquing in either bulb. Cervical segments of the internal carotid arteries are patent and symmetric. No evidence of dissection or narrowing. Motion artifact limits evaluation of the vertebral arteries. Distal vertebral arteries are small in caliber as is the basilar artery. No evidence of vertebral dissection in the neck. The basilar artery and the distal vertebral arteries appear slightly smaller in caliber than they did on the prior examination. There appear to be patent posterior communicating arteries bilaterally. Study is limited by venous contamination. Patent anterior communicating artery. No occlusion in the [place]. No large branch occlusion noted. 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
[2020-03-16 20:53] VITALS: BP 140/85; O2SAT 95
== END 2020-03-16 20:50 | disposition left against medical advice (07) ==
LOC: ER 16:02
DX: R55 Syncope and collapse (principal); R51 Headache; R53.1 Weakness; R42 Dizziness and giddiness; Z53.29 Procedure and treatment not carried out because of patient's decision for other reasons
CPT/HCPCS: 70450; 70496; 70498; 71045; 80053; 80307; 81001; 81025; 84484; 85025; 85610; 85730; 93005; J0780; J1200; J7030

== ENCOUNTER → 2020-06-08 | Outpatient (CLI) | payer BC | LOC: LAB.O 16:20 | PROVIDERS: ATTEND Internal Medicine Rheumatology | DX: R79.89 Other specified abnormal findings of blood chemistry (principal); M06.89 Other specified rheumatoid arthritis, multiple sites; R35.0 Frequency of micturition; R39.15 Urgency of urination; R30.0 Dysuria ==

== ENCOUNTER → 2020-06-28 | Outpatient (CLI) | payer BC | LOC: LAB.O 14:10 | PROVIDERS: ATTEND Internal Medicine Rheumatology | DX: M06.89 Other specified rheumatoid arthritis, multiple sites (principal); R79.89 Other specified abnormal findings of blood chemistry; Z79.899 Other long term (current) drug therapy ==

== ENCOUNTER 2020-10-03 12:03 | Emergency (ER) | payer BC ==
--- NOTE | 2020-10-03 12:16 | ED.PDOC ---
History of Present Illness - General Time Seen by Provider: 10/03/20 12:12 Source: patient, RN notes reviewed, Vital Signs reviewed Additional Information: 50 year old patientPresents ER because of shortness of breath, patient was diagnosed with COVID-19 10 days ago, patient has had the monoclonal antibody infusion, patient was scheduled to have a CT chest for PE as an outpatient, but she fell worsening shortness of breath for the past week and so she decided to come here she does have a pulse oximeter at home and he never dropped below 95%, Patient has a history of cardiac ablation, has a history of autoimmune disorderPatient arrived POV able to walk with a steady gait - History of Present Illness Timing/Duration: getting worse Severity: moderate Activities at Onset: none Possible Cause: no prior episodes Improving Factors: nothing Associated Symptoms: cough, fever, wheezing Respiratory Risk Factors: other - covid 19 Allergies/Adverse Reactions: Allergies NO KNOWN ALLERGY Allergy (Verified 10/03/20 12:20) Home Medications: Ambulatory Orders Bupropion HCl [Bupropion Hydrochloride E] 200 mg PO DAILY 08/25/18 Diclofenac Potassium 50 mg PO BID 08/25/18 Dietary Management Product [Rheumate] 1 cap PO DAILY 08/25/18 Dietary Management Product [Vasculera] 2 tab PO DAILY 08/25/18 Famciclovir 500 mg PO BID 08/25/18 Acetaminophen [Tylenol] 500 mg PO TID #90 tab 08/28/18 Cyclobenzaprine HCl [Flexeril] 5 mg PO BEDTIME PRN #30 tab 08/28/18 Review of Systems - Review of Systems Constitutional: States: chills, fever EENTM: States: no symptoms reported Respiratory: States: short of breath, wheezing Cardiology: States: no symptoms reported Gastrointestinal/Abdominal: States: no symptoms reported Musculoskeletal: States: no symptoms reported Skin: States: no symptoms reported Neurological: States: no symptoms reported Endocrine: States: no symptoms reported Hematologic/Lymphatic: States: no symptoms reported Past Medical History (General) - Patient Medical History Hx Seizures: No Hx Stroke: No Hx Asthma: No Hx of COPD: No Hx Congestive Heart Failure: No Hx Pacemaker: No Hx Hypertension: No Hx Diabetes: No Hx MRSA: No - Social History Hx Alcohol Use: No Hx Substance Use: No Hx Physical Abuse: No Hx Emotional Abuse: No Family Medical History - Family History Mother Family History: No Known Living Status: Still Living Hx Family Asthma: No Hx Family Congestive Heart Failure: No Hx Family Hypertension: No Hx Family Stroke: No Hx Cardiac Disease: No Hx Family Diabetes: No Hx Family Cancer: No Father Family History: No Known Living Status: Still Living Hx Family Asthma: No Hx Family Congestive Heart Failure: No Hx Family Hypertension: No Hx Family Stroke: No Hx Cardiac Disease: No Hx Family Diabetes: No Hx Family Cancer: No Physical Exam - Physical Exam General Appearance: Well Developed, Well Groomed, Well Hydrated, Well Nourished Eyes, Ears, Nose, Throat Exam: PERRL/EOMI, normal ENT inspection, TMs normal Neck: non-tender, full range of motion, supple Respiratory: chest non-tender, lungs clear, normal breath sounds, no respiratory distress, no accessory muscle use Cardiovascular/Chest: normal peripheral pulses, regular rate, rhythm, no edema, no gallop, no JVD, no murmur Gastrointestinal/Abdominal: normal bowel sounds, non tender, soft, no organomegaly, no pulsatile mass Extremity: normal range of motion, non-tender, normal inspection, no pedal kaitlyn a, no calf tenderness Neurologic: kiss mixer II-XII nml as tested, no motor/sensory deficits, alert, normal mood/affect, oriented x 3 Skin Exam: normal color Lymphatic: no adenopathy Progress - Progress Progress: Today because of shortness of breath, patient has been diagnosed with COVID-19 10 days ago, patient pulse ox was 95% on room air did appear little fatigued but able to speak in complete sentences, she was scheduled to have an outpatient CT chest without PE sent by her primary care physician, but because she was feeling so bad this weekend she decided to come in and get it checked, patient EKG did not show an acute ischemic changes troponins were negative normal BNP, chest x-ray did not show pneumonia, and CTA chest did not show any evidence of pneumonia ARDS or PE. Patient returned home with instructions for bedrest, follow-up with primary physician and return to the ER immediately if there is any worsening shortness of breath unable to speak in complete sentences due to shortness of breath nausea vomiting altered mental stattus high fever chest pain or any other concerns 10/03/20 13:59 10/03/20 14:01 Discussed with this patient, and patient might be at the end of the infection but to keep in mind that sometimes symptoms may linger but to return to the ER if there are any other concerns Departure - Departure Clinical Impression: COVID-19 Disposition: Discharge to Home or Self Care Condition: Fair Departure Forms: Work Release Form Instructions: Coronavirus Disease 2019 (COVID-19) (DC) Diet: resume usual diet Activity: increase activity as tolerated Referrals: Mohit Rahman MD [Primary Care Provider] - 1-2 Weeks Home Medications: Ambulatory Orders Bupropion HCl [Bupropion Hydrochloride E] 200 mg PO DAILY 08/25/18 Diclofenac Potassium 50 mg PO BID 08/25/18 Dietary Management Product [Rheumate] 1 cap PO DAILY 08/25/18 Dietary Management Product [Vasculera] 2 tab PO DAILY 08/25/18 Famciclovir 500 mg PO BID 08/25/18 Acetaminophen [Tylenol] 500 mg PO TID #90 tab 08/28/18 Cyclobenzaprine HCl [Flexeril] 5 mg PO BEDTIME PRN #30 tab 08/28/18
[2020-10-03 13:44] VITALS: O2SAT 98
--- NOTE | 2020-10-03 13:44 | RAD ---
EXAM DESCRIPTION: Chest,1 View CLINICAL HISTORY: 50 years Female, rule out pe COMPARISON: Concurrent CT chest 10/03/2020 TECHNIQUE: Single view radiograph of the chest. IMPRESSION: Normal size cardiac silhouette. Infusion port left chest wall with its catheter directed inferiorly within the superior vena cava near the cavoatrial junction. Basal atelectasis. No lobar or masslike consolidation. No pleural effusion or pneumothorax. Included osseous structures intact. Electronically signed by: Ramon Serna MD 10/03/2020 1:43 PM CLINICAL PROJECT ASSISTANT
--- NOTE | 2020-10-03 13:49 | CT ---
EXAM DESCRIPTION: CTA Chest CLINICAL HISTORY: 50 years Female, sob COMPARISON: None. TECHNIQUE: CT images through the thorax with IV contrast using PE protocol. Multiplanar reformations provided. This examination was performed according to a CT angiographic (CTA) protocol with 3D post-processing. This involves 3D reconstructions, MIPS, volume rendered images and/or shaded surface rendering. This exam was performed according to our departmental dose-optimization program, which includes automated exposure control, adjustment of the mA and/or kV according to patient size and/or use of iterative reconstruction technique. CT CHEST PE FINDINGS: Pulmonary arteries and vascular: Diagnostic quality bolus. No filling defects. No significant stenosis. No dilation of the main pulmonary arterial trunk. Heart and mediastinum: Normal heart size. Unremarkable esophagus. No adenopathy. Thyroid Gland: 2.1 cm hypodense nodule centered at the left isthmus with peripheral calcification. Lungs: No suspicious nodule or mass. Dependent atelectasis bilaterally. Airways: Normal. Pleura: Normal. Musculoskeletal and Soft Tissues: No acute fracture or aggressive appearing osseous lesion. Infusion port left chest wall with its left subclavian catheter terminating in the cavoatrial junction. Subphrenic Structures: Gallbladder surgically absent. Surgical changes to the stomach. IMPRESSION: 1. No pulmonary embolus. Electronically signed by: Ramon Serna MD 10/03/2020 1:47 PM SALES ASSISTANT [employer]STIT[employer]
[2020-10-03 14:18] VITALS: BP 136/73; TEMP 98.5
== END 2020-10-03 14:18 | disposition home or self-care (01) ==
LOC: ER 12:03
DX: U07.1 COVID-19 (principal)